=== PATIENT | female | born 1940 | race Caucasian/White ===

== ENCOUNTER 2016-09-27 09:48 | Emergency (ER) | payer OTHER, BC ==
[~2016-09-27] VITALS: Ht 170.2 cm; Wt 68.6 kg
[~2016-09-27 09:48] MED LIST: AMLO-110 PO; ASPCH81X PO; ATOR-26 PO; CLOP1TAB15 PO; CRG125 PO; GLC/500 PO; VENL100T2 PO
[2016-09-27 09:57] VITALS: TEMP 36.4; Ht 170.2 cm; Wt 68.6 kg
[2016-09-27] MEDS ORDERED: KETOROLAC TROMETHAMINE 30 MG/ML VIAL IV STA (10:10)
--- NOTE | 2016-09-27 10:15 | EMERGENCY ROOM VISIT NOTE ---
History Report prepared by Roopa: Anmol Fine Under the Supervision of: Dr. Gogo Shipley D.O. First contact with patient: 09:59 Chief Complaint: BACK PAIN Stated Complaint: LUMBAR PAIN, L LEG PAIN History of Present Illness The patient is a 76 year old female who presents to the Emergency Room with complaints of persistent lower back pain that started last night. The patient notes that she woke up with leg pain and when she tried to get out bed her lower back started to cause her discomfort. She notes that the discomfort in her lower back is on both sides and this radiates down the back of her left leg. She denies any previous back injuries. 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 The patient took 2 Tylenol this morning which she notes helped relieve some of her pain as well as a heating pad. She denies abdominal pain, trouble moving her bowels, or any urinary symptoms at this time. Source of History: patient Onset: last night Position: back (lower) Timing: other (persistent) Modifying Factors (Relieving): tylenol, heat Associated Symptoms: No abdominal pain, No urinary symptoms Note: Other associated symptoms: radiation to back of left leg Denies: trouble moving her bowels Review of Systems See HPI for pertinent positives & negatives. A total of 10 systems reviewed and were otherwise negative. Past Medical & Surgical Medical Problems: (1) Bladder suspension (2) HTN (hypertension) (3) PT-NANBH (post-transfusion non-A, non-B hepatitis) Surgical Problems: (1) H/O resection of small bowel Family History Patient reports no known family medical history. Social History Smoking Status: Never Smoker Alcohol Use: none Drug Use: none Marital Status: Occupation Status: unemployed, retired Current/Historical Medications Scheduled Amlodipine (Norvasc), 5 MG PO QPM Aspirin (Aspirin Chewable), 81 MG PO QAM Atorvastatin (Lipitor), 80 MG PO QPM Carvedilol (Carvedilol), 12.5 MG PO BID Clopidogrel (Plavix), 75 MG PO QAM Metformin Hcl (Glucophage), 500 MG PO BID Venlafaxine Hcl (Effexor Extended Rel), 150 MG PO DAILY Allergies Coded Allergies: Codeine (Verified Allergy, Unknown, EPIGASTRIC PAIN, 09/27/16) Physical Exam Vital Signs Date Time Temp Pulse Resp B/P Pulse Ox O2 Delivery O2 Flow Rate FiO2 09/27/16 11:11 58 18 140/78 95 09/27/16 09:57 36.4 63 16 140/78 96 Room Air Physical Exam HEENT: Head - normocephalic and atraumatic Pupils are equal, round, and reactive to light. Extraocular eye muscles are intact, and sclera are anicteric. Nose - moist nasal mucosa without discharge. Mouth - moist buccal mucosa. Oropharynx is nonerythematous and there is no tonsillar exudate or edema noted. Neck: Supple; no JVD, nuchal rigidity, cervical lymphadenopathy. Back: Lower lumbar spine and upper sacrum midline tenderness, superficial thermal burn just superior to tenderness. Heart: Regular rate and rhythm. There is a normal S1 and S2 with no murmurs, clicks, or gallops appreciated. Lungs: Clear to auscultation bilaterally with no wheezes, rales, or rhonchi. Abdomen: Soft, completely nontender, nondistended, with good bowel sounds. There are no palpable pulsatile masses or hepatosplenomegaly. There is no guarding, rigidity, or rebound noted. Extremities: No evidence of cyanosis, clubbing, or edema. There are easily palpable peripheral pulses. Skin: warm and dry with good turgor and no rashes. Medical Decision & Procedures ER Provider Diagnostic Interpretation: X-ray results as stated below per interpretation by me and the radiologist: L-SPINE MIN 4 VIEWS ROUTINE CLINICAL HISTORY: Lumbar pain. COMPARISON: None FINDINGS: There are cholecystectomy clips. Mild to moderate dextroscoliosis of the lumbar spine is noted. There is mild anterolisthesis of L4 on L5 and minimal retrolisthesis of L3 on L4. There is marked multilevel disc space narrowing with osteophytosis and vacuum disc phenomenon. There is moderate to severe multilevel facet arthrosis. There is no acute fracture or suspicious lesion. IMPRESSION: 1. No acute lumbar spine fracture. 2. Mild to moderate dextroscoliosis and mild anterolisthesis of L4 and L5. 3. Severe multilevel degenerative disc disease and facet arthrosis. Electronically signed by: Dutch Bowie M.D. 09/27/2016 10:50 AM Dictated Date/Time: 09/27/2016 10:49 AM Medications Administered Medications (Trade) Dose Ordered Sig/Barry Route Start Time Stop Time Status Last Admin Dose Admin Ketorolac Tromethamine (Toradol Inj) 30 mg NOW STAT IV 09/27/16 10:10 09/27/16 10:11 DC 09/27/16 10:23 30 MG Procedure Medications: Toradol IV ED Course 1005: Past medical records reviewed. The patient was evaluated in room B11. A complete history and physical exam was performed. An IV lock was initiated 1010: Ordered Toradol Inj 30 mg IV. The patient went for plain films of the lumbar spine. 1050: At this time, I reevaluated the patient and her pain was much better. 1105: Upon reevaluation, the patient is resting comfortably. I discussed findings and results with her. She verbalized agreement of the treatment plan. The patient was discharged home. Medical Decision The patient is a 76 year old female who presents to the ED with back pain. Differential diagnosis includes acute disc herniation, lumbar strain, and sciatica. X-ray showed moderate degenerative changes in the lumbar spine. There is no obvious fractures or disc space narrowing. The patient had significant relief of her discomfort with the above meds. She did not want anything stronger. She will use NSAIDs for pain at home. I've asked her to follow-up with her PCP if the pain persists. Impression Primary Impression: Lumbar back pain Scribe Attestation The scribe's documentation has been prepared under my direction and personally reviewed by me in its entirety. I confirm that the note above accurately reflects all work, treatment, procedures, and medical decision making performed by me. Departure Information Dispostion Home / Self-Care Referrals RV. Castro MD (PCP) Forms HOME CARE DOCUMENTATION FORM, IMPORTANT VISIT INFORMATION Patient Instructions My [facility] [place] [facility] Additional Instructions Rest. Limit any strenuous activity Motrin - 600mg every 6 hours with food for pain Return to the ER if symptoms worsen. Follow up with PCP if pain continues
[2016-09-27] MEDS ORDERED: VENL150C56 PO (10:37)
--- NOTE | 2016-09-27 10:52 | DIAGNOSTIC IMAGING REPORT ---
L-SPINE MIN 4 VIEWS ROUTINE CLINICAL HISTORY: Lumbar pain. COMPARISON: None FINDINGS: There are cholecystectomy clips. Mild to moderate dextroscoliosis of the lumbar spine is noted. There is mild anterolisthesis of L4 on L5 and minimal retrolisthesis of L3 on L4. There is marked multilevel disc space narrowing with osteophytosis and vacuum disc phenomenon. There is moderate to severe multilevel facet arthrosis. There is no acute fracture or suspicious lesion. IMPRESSION: 1. No acute lumbar spine fracture. 2. Mild to moderate dextroscoliosis and mild anterolisthesis of L4 and L5. 3. Severe multilevel degenerative disc disease and facet arthrosis. Electronically signed by: Dutch Bowie M.D. 09/27/2016 10:50 AM Dictated Date/Time: 09/27/2016 10:49 AM
[2016-09-27 11:11] VITALS: BP 140/78; PULSE 58; O2SAT 95
== END 2016-09-27 11:34 | disposition home or self-care (01) ==
LOC: C.EDB 09:49
DX: M54.5 Low back pain (principal); I10 Essential (primary) hypertension; Z79.02 Long term (current) use of antithrombotics/antiplatelets; Z88.5 Allergy status to narcotic agent

== ENCOUNTER → 2016-10-16 | Outpatient (CLI) | payer OTHER, BC ==
[~2016-10-16] MED LIST changes: -VENL100T2 PO; +VENL150C56 PO
[2016-10-16 13:34] LABS: BASO % 0.1 %; BASO ABS # 0.01 K/uL (0-0.2); COMPLETE YES; EOS % 0.9 %; HEMATOCRIT 34.8 % (37-47); IG% 0.3 %; LYMPH % 37.4 %; LYMPH ABS # 2.82 K/uL (1.2-3.4); MEAN CELL VOLUME 88.1 fL (80-100); MEAN CORPUSCULAR HEMOGLOBIN 29.4 pg (25-34); MEAN CORPUSCULAR HGB CONC 33.3 g/dl (32-36); MEAN PLATELET VOLUME 9.5 fL (7.4-10.4); MONO % 5.7 %; NEUT % 55.6 %; PLATELET COUNT 321 K/uL (130-400); RED BLOOD COUNT 3.95 M/uL (4.2-5.4); WHITE BLOOD COUNT 7.54 K/uL (4.8-10.8)
[2016-10-16 13:50] LABS: ALT/SGPT 21 U/L (12-78); BLOOD UREA NITROGEN 14 mg/dl (7-18); BUN/CREATININE RATIO 20.1 (10-20); CALCIUM 9.4 mg/dl (8.5-10.1); CARBON DIOXIDE 25 mmol/L (21-32); CHLORIDE 103 mmol/L (98-107); CREATININE 0.67 mg/dl (0.60-1.20); GLUCOSE 92 mg/dl (70-99); POTASSIUM 3.8 mmol/L (3.5-5.1); SODIUM 138 mmol/L (136-145)
[2016-10-16 13:54] LABS: ESTIMATED AVERAGE GLUCOSE 131 mg/dl; HA1C FLAG Normal (Normal)
[2016-10-16 13:59] LABS: ALB/GLOB RATIO 0.9 (0.9-2); ALKALINE PHOSPHATASE 91 U/L (45-117); AST/SGOT 14 U/L (15-37); THYROID STIMULATING HORMONE 0.706 uIu/ml (0.300-4.500); TOTAL IRON BINDING CAPACITY 336 mcg/dl (250-450)
[2016-10-16 14:09] LABS: RATIO 10.5 mcg/mg (0-30.0)
== END | disposition home or self-care (01) ==
LOC: C.LAB1850 11:39
PROVIDERS: ATTEND Internal Medicine
DX: E11.9 Type 2 diabetes mellitus without complications (principal); E55.9 Vitamin D deficiency, unspecified; R26.81 Unsteadiness on feet; D50.9 Iron deficiency anemia, unspecified

== ENCOUNTER → 2017-02-04 | Outpatient (CLI) | payer OTHER, BC ==
[~2017-02-04] MED LIST changes: +REGADENOSON 0.4 MG/5 ML SYR ONE
--- NOTE | 2017-02-05 14:20 | MYOCARDIAL PERFUSION SCAN ---
ONE-DAY NUCLEAR MEDICINE TECHNETIUM-99M CARDIOLITE MYOCARDIAL PERFUSION SCAN CLINICAL HISTORY: The patient has known coronary artery disease and previously underwent placement 6 intracoronary stents. The patient presented with a chest pain syndrome and therefore, this stress test was ordered. COMPARISON: None. TECHNIQUE: For the stress portion of the study, 29 mCi of Technetium 99 m Cardiolite IV was injected at 9:40 a.m. on 02/04/2017. Thirty minutes following the injection, imaging of the heart was performed in multiple projection. For the rest portion of the study, 11 mCi of Technetium 99 m Cardiolite was injected IV at 7:45 a.m. One hour following the injection, imaging of the heart was performed in the same projections. For the stress portion of the study, 0.4 mg of Lexiscan was injected intravenously as per protocol. The patient tolerated the infusion well. There was no Lexiscan induced chest discomfort or EKG changes. Following the study, patient was hemodynamically stable without complaints. FINDINGS: The short axis, vertical long axis, and horizontal long axis images were reviewed in detail. There is a small defect noted in the distal anteroseptum present at both stress and rest. However, this area demonstrates normal systolic function suggesting breast attenuation. This is confirmed by the rotating images. There is no evidence of stress induced myocardial ischemia. The left ventricle demonstrates hyperdynamic systolic function with an ejection fraction greater than 70%. There are no isolated wall motion abnormalities. IMPRESSION: 1. No scintigraphic evidence of a prior myocardial infarction or stress induced myocardial ischemia. 2. No exercise induced chest pain. 3. No EKG changes. 4. Hyperdynamic left ventricular systolic function without wall motion abnormality. Left ventricular ejection fraction is greater than 70%.
== END | disposition home or self-care (01) ==
LOC: C.NUCL 07:11
PROVIDERS: ATTEND Physician Assistant
DX: I25.10 Atherosclerotic heart disease of native coronary artery without angina pectoris (principal); R07.89 Other chest pain

== ENCOUNTER → 2017-07-17 | Outpatient (CLI) | payer OTHER, BC ==
[~2017-07-17] MED LIST changes: -REGADENOSON 0.4 MG/5 ML SYR ONE
--- NOTE | 2017-07-17 14:37 | ECHOCARDIOGRAM REPORT ---
*NOTICE TO RECEIVING [employer]Y This information is strictly Confidential and protected under [place] law. [place] law prohibits you from making any further disclosure of this information unless further disclosure is expressly permitted by the written consent of the person to whom it pertains or is authorized by law. A general authorization for the release of medical or other information is not sufficient for this purpose. Hospital accepts no responsibility if the information is made available to any other person, INCLUDING THE PATIENT. Interpretation Summary * Name: JACKIE RODRIGUEZ Study Date: 07/17/2017 02:00 PM BP: 112/60 mmHg * Patient Location: [facility] HR: 63 * : 1940 (M/d/yyyy) Gender: Female Height: 66 in * Age: 77 yrs Ethnicity: [place] Weight: 150 lb * Ordering Physician: Mauro Knapp * Referring Physician: Mauro Knapp * Performed By: Amy العراقي RCS * * Reason For Study: Thoracic Aortic Aneurysm * BSA: 1.8 m2 * -- Conclusions -- * There is mild concentric left ventricular hypertrophy. * Left ventricular systolic function is normal. * Grade I diastolic dysfunction, (abnormal relaxation pattern). * The atrial septum is aneurysmal. * Mild aortic regurgitation. * Right ventricular systolic pressure is normal. * Borderline aortic root dilatation. Procedure Details * A complete two-dimensional transthoracic echocardiogram was performed (2D, M-mode, Doppler and color flow Doppler). Left Ventricle * The left ventricle is normal in size. * There is mild concentric left ventricular hypertrophy. * Left ventricular systolic function is normal. * Ejection Fraction = 60-65%. * Grade I diastolic dysfunction, (abnormal relaxation pattern). * The left ventricular wall motion is normal. Right Ventricle * The right ventricle is normal in size and function. Atria * The left atrial size is normal. * Right atrial size is normal. * The atrial septum is aneurysmal. Mitral Valve * The mitral valve is grossly normal. * Significant mitral regurgitation is absent. Tricuspid Valve * The tricuspid valve is not well visualized, but is grossly normal. * There is trace tricuspid regurgitation. * Right ventricular systolic pressure is normal. Aortic Valve * The aortic valve is normal in structure and function. * No hemodynamically significant valvular aortic stenosis. * Mild aortic regurgitation. Great Vessels * Borderline aortic root dilatation. Pericardium/Pleural * There is no pericardial effusion. Great Vessels * Normal inferior vena cava diameter and respiratory variation suggests normal central venous pressure. MMode 2D Measurements and Calculations IVSd 1.0 cm IVSs 1.3 cm LVIDd 4.1 cm LVIDs 3.2 cm LVPWd 10 cm LVPWs 1.3 cm IVS/LVPW 1.0 FS 22.2 % EDV(Teich) 74.3 ml ESV(Teich) 40.7 ml EF(Teich) 45.2 % EDV(cubed) 69.0 ml ESV(cubed) 32.5 ml EF(cubed) 52.9 % % IVS thick 22.5 % % LVPW thick 29.6 % LV mass(C)d 134.6 grams LV mass(C)dI 76.1 grams/m\S\2 LV mass(C)s 131.2 grams LV mass(C)sI 74.1 grams/m\S\2 SV(Teich) 33.6 ml SI(Teich) 19.0 ml/m\S\2 SV(cubed) 36.5 ml SI(cubed) 20.6 ml/m\S\2 Ao root diam 4.1 cm Ao root area 13.3 cm\S\2 ACS 2.0 cm LA dimension 3.3 cm asc Aorta Diam 4.0 cm LA/Ao 0.80 EDV(MOD-sp4) 70.1 ml ESV(MOD-sp4) 32.9 ml EF(MOD-sp4) 53.0 % EDV(MOD-sp2) 86.6 ml ESV(MOD-sp2) 34.1 ml EF(MOD-sp2) 60.6 % SV(MOD-sp4) 37.1 ml SI(MOD-sp4) 21.0 ml/m\S\2 SV(MOD-sp2) 52.5 ml SI(MOD-sp2) 29.7 ml/m\S\2 Doppler Measurements and Calculations MV E max steven 42.7 cm/sec MV A max steven 68.7 cm/sec MV E/A 0.62 MV P1/2t max steven 101.4 cm/sec MV P1/2t 89.8 msec MVA(P1/2t) 2.4 cm\S\2 MV dec slope 330.7 cm/sec\S\2 MV dec time 0.37 sec Ao V2 max 88.0 cm/sec Ao max PG 3.1 mmHg Ao max PG (full) 1.4 mmHg AI max steven 471.1 cm/sec AI max PG 88.8 mmHg AI dec slope 184.8 cm/sec\S\2 AI P1/2t 746.7 msec LV V1 max PG 1.7 mmHg LV V1 max 66.1 cm/sec PA V2 max 49.4 cm/sec PA max PG 1.0 mmHg TR max steven 162.4 cm/sec
== END | disposition home or self-care (01) ==
LOC: C.CPL 12:51
PROVIDERS: ATTEND Internal Medicine Cardiovascular Disease
DX: I10 Essential (primary) hypertension (principal); I25.10 Atherosclerotic heart disease of native coronary artery without angina pectoris; I71.2 Thoracic aortic aneurysm, without rupture

== ENCOUNTER → 2017-08-23 | Outpatient (CLI) | payer OTHER, BC ==
[2017-08-23 12:01] LABS: BASO % 0.2 %; BASO ABS # 0.01 K/uL (0-0.2); COMPLETE YES; EOS % 1.5 %; HEMATOCRIT 37.2 % (37-47); IG% 0.2 %; LYMPH % 33.3 %; LYMPH ABS # 1.98 K/uL (1.2-3.4); MEAN CELL VOLUME 90.5 fL (80-100); MEAN CORPUSCULAR HEMOGLOBIN 29.7 pg (25-34); MEAN CORPUSCULAR HGB CONC 32.8 g/dl (32-36); MEAN PLATELET VOLUME 9.9 fL (7.4-10.4); MONO % 6.4 %; NEUT % 58.4 %; PLATELET COUNT 253 K/uL (130-400); RED BLOOD COUNT 4.11 M/uL (4.2-5.4); WHITE BLOOD COUNT 5.94 K/uL (4.8-10.8)
[2017-08-23 12:19] LABS: ESTIMATED AVERAGE GLUCOSE 134 mg/dl; HA1C FLAG Normal (Normal)
[2017-08-23 12:29] LABS: ALT/SGPT 26 U/L (12-78); AST/SGOT 20 U/L (15-37); BLOOD UREA NITROGEN 16 mg/dl (7-18); BUN/CREATININE RATIO 21.2 (10-20); CARBON DIOXIDE 29 mmol/L (21-32); CHLORIDE 103 mmol/L (98-107); CHOLESTEROL 128 mg/dl (0-200); CREATININE 0.77 mg/dl (0.60-1.20); GLUCOSE 98 mg/dl (70-99); POTASSIUM 3.6 mmol/L (3.5-5.1); SODIUM 138 mmol/L (136-145); TRIGLYCERIDES 147 mg/dl (0-150); VERY LOW DENSITY LIPOPROT CALC 29 mg/dl
[2017-08-23 12:34] LABS: ALKALINE PHOSPHATASE 81 U/L (45-117); CHOLESTEROL/HDL RATIO 3.8; HDL CHOLESTEROL 34 mg/dl; LDL CHOLESTEROL CALCULATED 65 mg/dl; TOTAL IRON BINDING CAPACITY 358 mcg/dl (250-450)
== END | disposition home or self-care (01) ==
LOC: C.LAB 11:01
PROVIDERS: ATTEND Internal Medicine
DX: E11.9 Type 2 diabetes mellitus without complications (principal); E55.9 Vitamin D deficiency, unspecified; R29.898 Other symptoms and signs involving the musculoskeletal system; I10 Essential (primary) hypertension; D50.9 Iron deficiency anemia, unspecified; I25.10 Atherosclerotic heart disease of native coronary artery without angina pectoris

== ENCOUNTER → 2018-04-29 | Outpatient (CLI) | payer OTHER, BC ==
[~2018-04-29] MED LIST changes: -AMLO-110 PO; -GLC/500 PO; +HYDR25TA4 PO; +LISI40TA PO; +NTRGSL/4 UT; +ONDA4TAB10 SL; +POTA10CA28 PO; +SPIR25TA PO; +TRAZ100T29 PO
--- NOTE | 2018-04-30 15:09 | MAMMOGRAPHY REPORT ---
BILATERAL DIGITAL SCREENING MAMMOGRAM TOMOSYNTHESIS WITH CAD: 04/29/2018 CLINICAL HISTORY: Routine screening. Patient has no complaints. TECHNIQUE: Breast tomosynthesis in addition to standard 2D mammography was performed. Current study w as also evaluated with a Computer Aided Detection (CAD) system. COMPARISON: Comparison is made to exams dated: 01/25/2016 mammogram, 09/26/2014 mammogram - [facility], 08/12/2013 mammogram, 08/10/2013 mammogram, and 07/18/2005 mammogram. BREAST COMPOSITION: The tissue of both breasts is almost entirely fatty. FINDINGS: No suspicious masses, calcifications, or areas of architectural distortion are noted in either breast . There has been no significant interval change compared to prior exams. IMPRESSION: ACR BI-RADS CATEGORY 1: NEGATIVE There is no mammographic evidence of malignancy. A 1 year screening mammogram is recommended.( 019) The patient will receive written notification of the results. Some breast cancers are not detected with mammography. A negative mammographic report should not [place] y biopsy if a clinically suggestive mass is present. Kortney Daniels M.D. ah/:04/29/2018 15:34:22 Compliance Program Manager: RT Alisa(Fabienne)(M), [facility] letter sent: Normal 1/2 BI-RADS Code: ACR BI-RADS Category 1: Negative
== END | disposition home or self-care (01) ==
LOC: C.MAMM 14:26
PROVIDERS: ATTEND Internal Medicine
DX: Z12.31 Encounter for screening mammogram for malignant neoplasm of breast (principal)